=== PATIENT | female | born 1960 | race Hispanic/Latino ===

== ENCOUNTER → 2019-05-28 | Outpatient (CLI) | payer BC ==
[~2019-05-28] MED LIST: ASPIR 8181 MG PO; CELEBREX100 MG PO; FENOFIBRATE145 MG PO; LISINOPRIL10 MG PO; METHOCARBAMOL750 MG PO; PERCOCET 10-321 EACH PO
--- NOTE | 2019-05-28 13:53 | Diagnostic Imaging Report ---
Exam: Right wrist History: Pain Comparison: None. Findings: No fracture or malalignment. Joint spaces preserved. No abnormal soft tissue calcification or soft tissue defect. Impression: No acute osseous abnormality Signed by: Dr. Calixto Kay M.D. on 05/28/2019 1:50 PM
== END ==
LOC: RAD 13:16
PROVIDERS: ATTEND Internal Medicine
DX: M25.531 Pain in right wrist (principal)

== ENCOUNTER 2022-11-13 15:22 | Emergency (ER) | payer BC, OTHER ==
[~2022-11-13] VITALS: Ht 154.9 cm; Wt 72.6 kg
[2022-11-13] MEDS ORDERED: MUCINEX DM ER1 EACH PO (15:58)
== END 2022-11-13 16:15 | disposition home or self-care (01) ==
LOC: ER 15:25
DX: R50.9 Fever, unspecified (principal); U07.1 COVID-19; R05.9 Cough, unspecified; I10 Essential (primary) hypertension; E11.9 Type 2 diabetes mellitus without complications; E78.5 Hyperlipidemia, unspecified
CPT/HCPCS: 99282

== ENCOUNTER 2024-12-06 20:24 | Emergency (ER) | payer OTHER ==
[~2024-12-06] VITALS: Ht 154.9 cm; Wt 70.3 kg
[~2024-12-06 20:24] MED LIST changes: +DICYCLOMINE HCL10 MG PO; +MUCINEX DM ER1 EACH PO; +ONDANSETRON ODT4 MG PO
[2024-12-06] MEDS: SODIUM CHLORIDE 0.9% 1000ML 1,000 ML IV STA (22:17)
[2024-12-06 22:55] LABS: BASOPHILS % 0.5 % (0.0-1.0); EOSINOPHILS # (AUTO) 0.1 (0.0-0.4); EOSINOPHILS % 1.6 % (0.0-6.0); HEMATOCRIT 37.7 % (34.2-44.1); HEMOGLOBIN 12.4 g/dL (12.0-16.0); LYMPHOCYTES # (AUTO) 2.1 (1.0-3.2); LYMPHOCYTES % 32.6 % (18.0-39.1); MEAN CORPUSCULAR HEMOGLOBIN 28.3 pg (28-32); MEAN CORPUSCULAR HGB CONC 32.9 g/dL (31-35); MEAN CORPUSCULAR VOLUME 86.1 fL (81-99); MONOCYTES # (AUTO) 0.5 (0.2-0.8); MONOCYTES % 8.4 % (4.4-11.3); NEUTROPHILS # (AUTO) 3.7 (2.1-6.9); NEUTROPHILS % 56.4 % (38.7-80.0); PLATELET COUNT 201 x10e3/uL (140-360); RED BLOOD COUNT 4.38 x10e6/uL (3.6-5.1); RED CELL DISTRIBUTION WIDTH 14.1 % (11.7-14.4); WHITE BLOOD COUNT 6.45 x10e3/uL (4.8-10.8)
[2024-12-06 22:58] LABS: CLARITY,URINE CLOUDY (CLEAR); COLOR,URINE YELLOW (YELLOW); LEUKOCYTE ESTERASE ,URINE 1+ (NEGATIVE); NITRITE,URINE NEGATIVE (NEGATIVE); PH,URINE 5.5 (5 - 7)
[2024-12-06 22:59] LABS: BILIRUBIN,URINE NEGATIVE (NEGATIVE); GLUCOSE, URINE NEGATIVE (NEGATIVE); KETONES,URINE NEGATIVE (NEGATIVE); PROTEIN,URINE DIPSTICK 2+ (NEGATIVE); URINE UROBILINOGEN 0.2 mg/dL (0.2 - 1)
[2024-12-06 23:13] LABS: ALBUMIN 4.2 g/dL (3.5-5.0); ALBUMIN/GLOBULIN RATIO 1.1 (0.8-2.0); ANION GAP 15.4 mmol/L (8-16); BILIRUBIN,TOTAL 0.3 mg/dL (0.2-1.2); CALCIUM 9.8 mg/dL (8.4-10.2); CREATININE, SERUM 1.53 mg/dL (0.57-1.11)
[2024-12-06 23:20] LABS: POTASSIUM 3.4 mmol/L (3.5-5.1)
[2024-12-06 23:25] LABS: BACTERIA,URINE MANY /HPF; EPITHELIAL CELLS,URINE FEW /LPF; MUCUS,URINE FEW; RENAL EPITHELIAL CELLS,URINE FEW; TRANSITIONAL EPI CELLS,URINE FEW; WBC,URINE (MAN) >50 /HPF (0-5)
[2024-12-07] MEDS ORDERED: IOPAMIDOL 370 MG/ML 100 ML INFUS..BTL INJ ONE (00:01)
[2024-12-07] MEDS ORDERED: BACTRIM DS TAB1 EACH PO (01:11)
[2024-12-07 01:30] VITALS: PULSE 94; RESP 20; TEMP 98.4; O2SAT 99
[2024-12-07] MEDS ORDERED: PYRIDIUM100 MG PO (01:35)
[2024-12-07] MEDS: KETOROLAC TROMETHAMINE 30 MG/ML VIAL IV STA (01:37)
== END 2024-12-07 01:40 | disposition home or self-care (01) ==
LOC: ER 20:34
DX: R10.30 Lower abdominal pain, unspecified (principal); N39.0 Urinary tract infection, site not specified; I10 Essential (primary) hypertension; E11.9 Type 2 diabetes mellitus without complications; E78.5 Hyperlipidemia, unspecified; Z85.528 Personal history of other malignant neoplasm of kidney; M19.09 Primary osteoarthritis, other specified site
CPT/HCPCS: 36415; 74177; 80053; 81001; 83690; 85025; 99284; J1885; J7030; Q9967